=== PATIENT | male | born 2005 | race Two or more races ===

== ENCOUNTER 2025-04-07 16:01 | Emergency (ER) | payer MEDICAID ==
[~2025-04-07] VITALS: Ht 180.3 cm; Wt 75.0 kg
[2025-04-07 16:18] VITALS: TEMP 97.9
[2025-04-07 16:59] LABS: PLATELET COUNT (AUTO) 228 K/uL (150-450); RED BLOOD CELL COUNT(AUTO) 4.81 MIL/uL (4.50-5.90); RED CELL DISTRIBUTION WIDTH 13.3 % (11.5-14.5); WHITE BLOOD COUNT (AUTO) 16.7 K/uL (4.5-11.0)
[2025-04-07 17:15] LABS: ASPARTATE AMINOTRANSFERASE 17 U/L (15-37); CREATINE KINASE, TOTAL ONLY 103 U/L (39-308); TOTAL PROTEIN, SERUM 7.2 g/dL (6.4-8.2)
[2025-04-07 17:16] LABS: ALCOHOL, BLOOD (SERUM) < 3 mg/dL (0-10)
[2025-04-07 17:29] LABS: CALCIUM, TOTAL 8.9 mg/dL (8.8-10.5); CREATININE 1.36 mg/dL (0.60-1.30); GLOMERULAR FILTR. RATE CALC > 60 mL/min (>60); GLUCOSE,RANDOM 188 mg/dL (70-110); SODIUM SERUM 136 mmol/L (136-145); UREA NITROGEN, BLOOD 11 mg/dL (7-18)
[2025-04-07 17:38] LABS: TROPONIN I-HIGH SENSITIVITY 6 ng/L (<76)
[2025-04-07 17:56] LABS: APPEARANCE,URINE HAZY (CLEAR); GLUCOSE, URINE (UA) NEGATIVE (NEGATIVE); LEUKOCYTE ESTERASE ,URINE NEGATIVE (NEGATIVE); NITRATE,URINE NEGATIVE (NEGATIVE); OCCULT BLOOD,URINE NEGATIVE (NEGATIVE); PH,URINE DRUG SCREEN 7.0 (5.0-8.0); SPECIFIC GRAVITIY, URINE 1.013 (1.003-1.030)
[2025-04-07] MEDS: POTASSIUM CHLORIDE 20 MEQ ER TABLET PO ONE (18:04)
[2025-04-07 18:06] LABS: ALCOHOL, URINE DRUG SCREEN NEGATIVE (NEGATIVE); AMPHET/METH SCREEN,URINE NEGATIVE (NEGATIVE); BARBITURATE SCREEN, URINE NEGATIVE (NEGATIVE); CANNABINOID SCREEN,URINE POSITIVE (NEGATIVE); COCAINE SCREEN,URINE NEGATIVE (NEGATIVE); METHADONE SCREEN, URINE NEGATIVE (NEGATIVE)
[2025-04-07 20:31] VITALS: BP 131/76; PULSE 80; RESP 18; O2SAT 99
== END 2025-04-07 20:47 | disposition still patient (30) ==
LOC: EMS 16:01
DX: F16.90 Hallucinogen use, unspecified, uncomplicated (principal); F12.90 Cannabis use, unspecified, uncomplicated
CPT/HCPCS: 99285; 71045; 80048; 80076; 82550; 83880; 84484; 85025; 85610; 85730; 36415; 93005; 80307; 81003; G0480